=== PATIENT | female | born 2000 | race Caucasian/White ===

== ENCOUNTER 2022-05-09 08:35 | Emergency (ER) | payer OTHER ==
[~2022-05-09] VITALS: Ht 165.1 cm; Wt 61.2 kg
--- NOTE | 2022-05-09 09:34 | ED Neurological Problem ---
General Chief Complaint: Neurological Problems Stated Complaint: SEIZURES Nursing Triage Note: PT BROUGHT IN BY [facility] FROM SCHOOL WITH COMPLAINT SEIZURE. PT HAD WITNESSED SEIZURE LASTING APPROX 1-2 MINUTES. PT STATES SHE TAKES LAMICTAL DAILY AND HAS NOT MISSED ANY DOSES. PT DID HIT LEFT SIDE OF HEAD AND IS COMPLAINING OF PAIN. PLACED IN CCOLLAR BY EMS. Source: patient, family, old records Exam Limitations: no limitations (ÁLVARO BAILON) History of Present Illness Date Seen by Provider: May 09, 2022 Time Seen by Provider: 08:37 Initial Comments Miss Davila is a 21yo F with PMH of epileptic seizure who presents to the ED via EMS with her mother with concern of witnessed seizure this am complicated by fall from standing and hitting her head. Pt reports that she began feeling "weird" and recognized this to be consistent with previous seizure episodes. She alerted her classmate who assisted the pt towards the exit before LOC. Pt recalls waking up and initially feeling disoriented but is now A&Ox4. She complains of pain to coming from her head where she stuck it when falling & also tenderness in the OA region. Denies N/V/F/C/D. Last siezure was induced in [facility] earlier this month where she was being examined for possible source of her epilepsy, which was isolated to her left frontal lobe. Pt is taking Lamictal as prescribed for her epilepsy and has been consistent in taking her medication. Timing/Duration: 1-3 hours, episodic Severity: mild Associated Symptoms: fatigue, loss of consciousness, nausea/vomiting, seizures, weakness (ÁLVARO BAILON) Initial Comments Hussein presents to the emergency room via EMS and is accompanied by her mother. EMS, patient, and mother are the historians. Patient felt a prodrome prior to this seizure. She has a state of disorientation or confusion, loss of appetite, and general dysphoria for minutes to hours prior to her seizures. She was experiencing the symptoms this morning. She went to class and the prodrome worsen. She had a friend help her out of the classroom where she then collapsed and struck her head on a hard surface. She denies any symptoms of concussion right now such as confusion, nausea, vision changes, etc. She appears to have a hematoma or significant contusion on the left forehead. She also complains of pain at the base of the occiput. C-collar was applied. Patient is under the care of of a neurologist. She denies any known triggers for this seizure. She did not eat breakfast this morning but did not eat well last night. She has not been sleep deprived. She denies as she has been abstinent for about a year and a half. She denies any drug or alcohol use. (DONALDO NICOLE MD) Allergies and Home Medications Allergies Coded Allergies: Penicillins (Verified Allergy, Unknown, 05/09/22) Patient Home Medication List Home Medication List Reviewed: Yes (DONALDO NICOLE MD) Review of Systems Review of Systems Constitutional: No chills, No fever, No malaise; weakness Eyes: Denies Blindness, Denies Blurred Vision, Denies Decreased Acuity, Denies Pain, Denies Photophobia, Denies Shadows, Denies Tunnel Vision, Denies Vision Changes; Glasses Ears, Nose, Mouth, Throat: denies ear pain, denies ear discharge, denies nose pain, denies epistaxis, denies mouth pain, denies mouth swelling, denies throat pain Respiratory: No cough, No dyspnea on exertion, No short of breath Cardiovascular: No chest pain, No palpitations Gastrointestinal: No abdominal pain, No diarrhea, No nausea, No vomiting Genitourinary: No dysuria, No incontinence, No pain Musculoskeletal: No back pain, No joint pain, No muscle pain; neck pain (OA region), other (Pain from left front of skull) Skin: No lesions; lumps (left front skull); No pruritus Psychiatric/Neurological: Denies Anxiety; Cognitive Dysfunction (amnesia to the event but feeling fine now, currently A&Ox4), Headache; Denies Numbness, Denies Tingling; Tonic Clonic Seizures, Weakness (ÁLVARO BAILON) Past Ncvtvup-Tkttfu-Evglno Hx Patient Social History Tobacco Use?: No Use of E-Cig and/or Vaping dev: Yes E-Cig or Vaping type used: Nicotine Substance use?: No Alcohol Use?: No Pt feels they are or have been: No (ÁLVARO BAILON) Past Medical History Neurological: Yes Seizure Disorder (Epilepsy) : No Reproductive Disorders: No Musculoskeletal: No Loss of Vision: Denies Psychosocial: No Integumentary: No (ÁLVARO BAILON) Family Medical History No Pertinent Family Hx (ÁLVARO BAILON) Physical Exam Vital Signs Vital Signs - First Documented 05/09/22 08:35 Temp 36.9 Pulse 82 Resp 16 B/P (MAP) 144/89 (107) Pulse Ox 98 O2 Delivery Room Air (DONALDO NICOLE MD) Vital Signs Capillary Refill : Less Than 3 Seconds (ÁLVARO BAILON) Height, Weight, BMI Height: '" Weight: lbs. oz. kg; 22.00 BMI Method: General Appearance: WD/WN, no apparent distress HEENT: PERRL/EOMI, pharynx normal Neck: full range of motion, supple, tender lateral (Righ OA tenderness on palp) Respiratory: chest non-tender, lungs clear, normal breath sounds, no respiratory distress, no accessory muscle use Cardiovascular: normal peripheral pulses, regular rate, rhythm, no edema, no murmur Peripheral Pulses: 1+ Radial Pulses (R), 1+ Radial Pulses (L) Gastrointestinal: normal bowel sounds, non tender, soft, no organomegaly, no pulsatile mass Extremities: normal range of motion, non-tender, no pedal edema, no calf tenderness, normal capillary refill Neurologic/Psychiatric: small arms repairer II-XII nml as tested, no motor/sensory deficits, alert, normal mood/affect, oriented x 3 Crainal Nerves: normal hearing, normal speech, PERRL; No facial asymmetry, No facial droop, No facial paresthesias, No facial weakness, No gaze palsy, No hearing deficit (R), No hearing deficit (L) Coordination/Gait: normal finger to nose Motor/Sensory: No no motor deficit, No no sensory deficit Skin: normal color, warm/dry, ecchymosis (supperficial abrasion to left forehead with raised fluctuant swelling approx. 4cm - also noted slight redness to skin of left clavical area.) Lymphatic: no adenopathy (ÁLVARO BAILON) Progress/Results/Core Measures Results/Orders Lab Results Laboratory Tests Test 05/09/22 08:43 Range/Units Sodium Level 139 135-145 MMOL/L Potassium Level 3.8 3.6-5.0 MMOL/L Chloride Level 107 98-107 MMOL/L Carbon Dioxide Level 22 21-32 MMOL/L Anion Gap 10 5-14 MMOL/L Blood Urea Nitrogen 12 7-18 MG/DL Creatinine 1.02 0.60-1.30 MG/DL Estimat Glomerular Filtration Rate 81 BUN/Creatinine Ratio 12 Glucose Level 109 H 70-105 MG/DL Calcium Level 9.3 8.5-10.1 MG/DL (DONALDO NICOLE MD) My Orders Orders - DONALDO NICOLE MD Ct Head/Cervical Spine Wo (05/09/22 09:20) Basic Metabolic Panel (05/09/22 09:21) (DONALDO NICOLE MD) Vital Signs/I&O 05/09/22 05/09/22 08:35 10:09 Temp 36.9 Pulse 82 Resp 16 B/P (MAP) 144/89 (107) 133/91 Pulse Ox 98 O2 Delivery Room Air (DONALDO NICOLE MD) Blood Pressure Mean: 107 Progress Progress Note : Progress Note Patient was interviewed and examined by me as well as MS4. Mother and EMS were also interviewed. C-collar was applied due to tenderness at the base of the occiput. We discussed risks and benefits of CT imaging of the head and neck. Risks included cost and radiation exposure. Patient elected to proceed with CT. She declined test as she has been abstinent over [address] report was reviewed and c-collar was then cleared. CT was additionally viewed by me. I appreciated no bony injuries, intracranial masses, or hemorrhages. Not mention by the radiologist was a hematoma of the left forehead visible on soft tissue views of the CT. Patient was exhibiting no signs of concussion. She appeared to clear her postictal state. BMP was obtained and was unremarkable. Glucose was normal and there were no electrolyte abnormalities. Patient was discharged home accompanied by her mother. (DONALDO NICOLE MD) Diagnostic Imaging Diagonstic Imaging: CT Plain Films/CT/US/NM/MRI: c-spine, head Comments CT head and C-spine viewed by me and report reviewed. See radiologist report below: NAME: HUSSEIN DAVILA [facility] REC#: [id number] PT STATUS: REG ER : 2000 PHYSICIAN: DONALDO NICOLE MD ADMIT DATE: 05/09/22/ER Signed Date of Exam:05/09/22 CT HEAD/CERVICAL SPINE WO PROCEDURE: CT head and CT cervical spine without contrast. TECHNIQUE: Multiple contiguous axial images were obtained through the brain and cervical spine without the use of intravenous contrast. Sagittal and coronal reformations through the cervical spine were then performed. Auto Exposure Controls were utilized during the CT exam to meet ALARA standards for radiation dose reduction. INDICATION: Seizure. Fall. Head and neck pain. COMPARISON: None. FINDINGS: CT head: No large acute territorial ischemia, mass, or hemorrhage. No midline shift or mass effect. The ventricles, cortical sulci, and basilar cisterns are patent and unremarkable. The calvarium is intact. The visualized paranasal sinuses are clear. CT cervical spine: No acute fracture or dislocation is seen in the cervical spine. No focal osseous lesions. Vertebral body heights are well-maintained. The craniocervical junction is well-maintained. Soft tissues of the neck are unremarkable. Included lung apices are clear. IMPRESSION: 1. No hemorrhage or focal intra-axial mass. No CT evidence of large acute territorial ischemia. 2. No acute fracture or dislocation in the cervical spine. Dictated by: Dictated on workstation # [id number] Dict: 05/09/22 0939 Trans: 05/09/22 0959 [facility] [id number] Interpreted by: DIONTE FAIR DO Electronically signed by: DIONTE FAIR DO 05/09/22 0959 (DONALDO NICOLE MD) Departure Impression Primary Impression: Fall on same level Qualified Codes: W18.30XA - Fall on same level, unspecified, initial encounter Additional Impressions: Facial hematoma Qualified Codes: S00.83XA - Contusion of other part of head, initial encounter Seizure Disposition: 01 HOME, SELF-CARE Condition: Improved Departure-Patient Inst. Decision time for Depature: 09:54 (DONALDO NICOLE MD) Referrals: NO,LOCAL PHYSICIAN (PCP/Family) Primary Care Physician Patient Instructions: HEMATOMA, Seizures, Adult ED Add. Discharge Instructions: Continue your medication as previously directed and consult your neurologist regarding frequency of seizures and any changes to medications that may be recommended. Eat a well-balanced diet and drink plenty of clear liquids. Avoid skipping meals. Avoid sleep deprivation and any other seizure triggers. Return to the emergency room if you have worsening symptoms, especially if you develop neurologic symptoms such as confusion, vomiting, escalating headache, dysfunction of arms or legs, facial drooping, etc. You may ice your hematoma in 20-minute intervals to reduce pain and swelling. You may additionally use ibuprofen up to 600 mg every 6 hours as needed and/or Tylenol (acetaminophen) up to 1000 mg every 6 hours as needed. All discharge instructions reviewed with patient and/or family. Voiced understanding. Work/School Note: School/Childcare Release Date Seen in the Emergency Department: May 09, 2022 Time Dismissed from Emergency Department: 10:15 Return to School: May 10, 2022 Other Restrictions Listed Below: No activity at high risk for injury if seizure were to occur. Medical Student Attestation and Attending Note: I have personally interviewed and examined this patient along with Álvaro Bailon, MS4. I have reviewed student documentation including history, physical, and assessments. I agree with the documentation except where otherwise noted. Exam: General: Alert, oriented, no acute distress, well developed HEENT: Left forehead hematoma and contusion with subtle abrasion, tenderness over the inferior occiput Heart: Regular rate and rhythm without murmur Lungs: Clear to auscultation bilaterally with normal effort Neuropsych: Alert, oriented, no focal deficits Skin: Warm and dry without rashes, contusion and abrasion over the forehead injury (DONALDO NICOLE MD) ÁLVARO BAILON May 09, 2022 09:34 DONALDO NICOLE MD May 09, 2022 09:58
[2022-05-09 09:35] LABS: POTASSIUM 3.8 MMOL/L (3.6-5.0)
[2022-05-09 09:36] LABS: CALCIUM 9.3 MG/DL (8.5-10.1)
[2022-05-09 09:41] LABS: CREATININE SERUM 1.02 MG/DL (0.60-1.30)
--- NOTE | 2022-05-09 09:43 | Diagnostic Imaging Report ---
PROCEDURE: CT head and CT cervical spine without contrast. TECHNIQUE: Multiple contiguous axial images were obtained through the brain and cervical spine without the use of intravenous contrast. Sagittal and coronal reformations through the cervical spine were then performed. Auto Exposure Controls were utilized during the CT exam to meet ALARA standards for radiation dose reduction. INDICATION: Seizure. Fall. Head and neck pain. COMPARISON: None. FINDINGS: CT head: No large acute territorial ischemia, mass, or hemorrhage. No midline shift or mass effect. The ventricles, cortical sulci, and basilar cisterns are patent and unremarkable. The calvarium is intact. The visualized paranasal sinuses are clear. CT cervical spine: No acute fracture or dislocation is seen in the cervical spine. No focal osseous lesions. Vertebral body heights are well-maintained. The craniocervical junction is well-maintained. Soft tissues of the neck are unremarkable. Included lung apices are clear. IMPRESSION: 1. No hemorrhage or focal intra-axial mass. No CT evidence of large acute territorial ischemia. 2. No acute fracture or dislocation in the cervical spine. Dictated by: Dictated on workstation # [id number]
[2022-05-09 10:09] VITALS: BP 133/91
== END 2022-05-09 10:10 | disposition home or self-care (01) ==
LOC: ER 08:41
DX: S00.83XA Contusion of other part of head, initial encounter (principal); G40.909 Epilepsy, unspecified, not intractable, without status epilepticus; F17.290 Nicotine dependence, other tobacco product, uncomplicated; W18.30XA Fall on same level, unspecified, initial encounter; W22.8XXA Striking against or struck by other objects, initial encounter
CPT/HCPCS: 36415; 70450; 72125; 80048